=== PATIENT | female | born 1995 | race Two or more races ===

== ENCOUNTER 2017-12-14 23:35 | Emergency (ER) | payer MEDICAID ==
[~2017-12-14] VITALS: Ht 165.1 cm; Wt 61.4 kg
[~2017-12-14 23:35] MED LIST: KETO10TA2 PO
[2017-12-14] MEDS ORDERED: ondansetron/PF 4mg/2ml inj IV ONE (23:45)
[2017-12-14] MEDS ORDERED: HYDROmorphone inj. 0.5 MG/0.5 ML DISP.SYRIN IV ONE (23:45)
[2017-12-14] MEDS ORDERED: normal saline 1000ML IV soln IVB ONE (23:45)
[2017-12-15 00:07] LABS: BASOPHILS % (AUTO) 0.8 % (0-1); EOSINOPHILS # (AUTO) 0.2 X10'3 (0-0.9); EOSINOPHILS % (AUTO) 2.8 % (0-6); HEMATOCRIT 38.9 % (35.0-45.0); HEMOGLOBIN 13.5 g/dl (12.0-16.0); LYMPHOCYTES # (AUTO) 2.8 X10'3 (1.1-4.8); LYMPHOCYTES % (AUTO) 43.1 % (21-51); MEAN CORPUSCULAR HGB CONC 34.8 % (33.0-36.5); MEAN CORPUSCULAR VOLUME 86.3 FL (78-98); MEAN PLATELET VOLUME 7.5 FL (7.4-10.4); MONOCYTES # (AUTO) 0.5 X10'3 (0-0.9); MONOCYTES % (AUTO) 7.6 % (2-12); NEUTROPHILS % (AUTO) 45.7 % (42-75); PLATELET COUNT 269 X10'3 (140-440); RED BLOOD COUNT 4.51 X10'6 (4.20-5.60); RED CELL DISTRIBUTION WIDTH 12.3 % (11.5-14.5); WHITE BLOOD COUNT 6.5 X10'3 (4.5-11.0)
[2017-12-15 00:19] LABS: ALANINE AMINOTRANSFERASE 19 U/L (12-78); ALBUMIN 3.9 G/DL (3.4-5.0); ALKALINE PHOSPHATASE 63 IU/L (46-116); ANION GAP 8 (8-16); ASPARTATE AMINO TRANSFERASE 12 U/L (10-37); BILIRUBIN,TOTAL 0.3 MG/DL (0.1-1.0); BLOOD UREA NITROGEN 12 MG/DL (7-18); BUN/CREATININE RATIO 19.7 (6.6-38.0); CALCIUM 8.5 MG/DL (8.5-10.1); CHLORIDE 105 MMOL/L (99-107); CREATININE 0.61 MG/DL (0.40-0.90); GLUCOSE 115 MG/DL (70-104); POTASSIUM 3.6 MMOL/L (3.5-5.1); SODIUM 142 MMOL/L (135-145); TOTAL CARBON DIOXIDE 28.9 MMOL/L (24-32); TOTAL PROTEIN 7.7 G/DL (6.4-8.2); eGFR > 90 ML/MIN
[2017-12-15 01:42] VITALS: BP 107/59
== END 2017-12-15 01:55 | disposition home or self-care (01) ==
LOC: ER 23:35
DX: K59.00 Constipation, unspecified (principal); R10.31 Right lower quadrant pain; Z90.49 Acquired absence of other specified parts of digestive tract; Z79.899 Other long term (current) drug therapy
CPT/HCPCS: 36415; 74176; 80053; 85025; 96361; 96374; 96375; 99285; J1170; J2405; J7030

== ENCOUNTER 2019-05-14 18:15 | Emergency (ER) | payer MEDICAID ==
[~2019-05-14] VITALS: Ht 165.1 cm; Wt 62.0 kg
[~2019-05-14 18:15] MED LIST changes: +ALBU6.7H9 INH; +NITR100C PO
[2019-05-14 18:37] VITALS: BP 95/68
== END 2019-05-14 21:46 | disposition home or self-care (01) ==
LOC: ER 18:16
DX: J06.9 Acute upper respiratory infection, unspecified (principal); J40 Bronchitis, not specified as acute or chronic; Z90.49 Acquired absence of other specified parts of digestive tract; Z79.899 Other long term (current) drug therapy
CPT/HCPCS: 71045; 99283

== ENCOUNTER 2020-07-05 08:40 | Emergency (ER) | payer MEDICAID ==
[~2020-07-05] VITALS: Ht 165.1 cm; Wt 70.0 kg
[2020-07-05 08:52] VITALS: BP 120/77
== END 2020-07-05 10:03 | disposition home or self-care (01) ==
LOC: ER 08:41
DX: J06.9 Acute upper respiratory infection, unspecified (principal); R05 Cough; R51.9 Headache, unspecified; Z20.828 Contact with and (suspected) exposure to other viral communicable diseases; Z90.49 Acquired absence of other specified parts of digestive tract; Z79.899 Other long term (current) drug therapy
CPT/HCPCS: 36415; 71045; 87502; 87503; 99284

== ENCOUNTER 2020-11-05 19:44 | Emergency (ER) | payer BC, MEDICAID ==
[~2020-11-05] VITALS: Ht 165.1 cm; Wt 68.2 kg
[2020-11-05 19:59] VITALS: BP 132/98
[2020-11-05] MEDS ORDERED: LIDOcaine 1% W/epiNEPHrine 1:200,000 10ml vial IJ ONE (22:00)
[2020-11-05] MEDS ORDERED: CEPH250T PO (23:38)
== END 2020-11-05 23:59 | disposition home or self-care (01) ==
LOC: ER 19:44
DX: L60.0 Ingrowing nail (principal); Z90.49 Acquired absence of other specified parts of digestive tract; Z79.899 Other long term (current) drug therapy
CPT/HCPCS: 11750; 73630; 99284

== ENCOUNTER 2021-09-06 14:23 | Emergency (ER) | payer MEDICAID ==
[~2021-09-06] VITALS: Ht 165.1 cm; Wt 66.8 kg
[2021-09-06 14:54] VITALS: BP 114/81
== END 2021-09-06 18:12 | disposition left against medical advice (07) ==
LOC: ER 14:23
DX: R10.9 Unspecified abdominal pain (principal); Z53.21 Procedure and treatment not carried out due to patient leaving prior to being seen by health care provider

== ENCOUNTER 2021-09-15 21:26 | Emergency (ER) | payer MEDICAID ==
[~2021-09-15] VITALS: Ht 165.1 cm; Wt 65.5 kg
[2021-09-15 21:29] VITALS: BP 119/75
[2021-09-15 22:01] LABS: BASOPHILS # (AUTO) 0.1 X10'3 (0-0.2); BASOPHILS % (AUTO) 1.2 % (0-1); EOSINOPHILS # (AUTO) 0.3 X10'3 (0-0.9); EOSINOPHILS % (AUTO) 6.5 % (0-6); HEMATOCRIT 36.5 % (35.0-45.0); HEMOGLOBIN 12.7 g/dl (12.0-16.0); LYMPHOCYTES # (AUTO) 2.4 X10'3 (1.1-4.8); LYMPHOCYTES % (AUTO) 47.3 % (21-51); MEAN CORPUSCULAR HEMOGLOBIN 27.8 PG (27.0-31.0); MEAN CORPUSCULAR HGB CONC 34.9 g/dL (33.0-36.5); MEAN CORPUSCULAR VOLUME 79.5 FL (78-98); MEAN PLATELET VOLUME 6.5 FL (7.4-10.4); MONOCYTES # (AUTO) 0.4 X10'3 (0-0.9); MONOCYTES % (AUTO) 8.1 % (2-12); NEUTROPHILS # (AUTO) 1.9 X10'3 (1.8-7.7); NEUTROPHILS % (AUTO) 36.9 % (42-75); PLATELET COUNT 305 X10'3 (140-440); RED BLOOD COUNT 4.59 X10'6 (4.20-5.60); RED CELL DISTRIBUTION WIDTH 15.1 % (11.5-14.5); WHITE BLOOD COUNT 5.1 X10'3 (4.5-11.0)
[2021-09-15 22:12] LABS: ALANINE AMINOTRANSFERASE 21 U/L (12-78); ALBUMIN/GLOBULIN RATIO 1.1 (1.1-1.5); ALKALINE PHOSPHATASE 66 IU/L (46-116); ANION GAP 10 (8-16); ASPARTATE AMINO TRANSFERASE 16 U/L (10-37); BILIRUBIN,TOTAL 0.2 MG/DL (0.1-1.0); BLOOD UREA NITROGEN 10 MG/DL (7-18); BUN/CREATININE RATIO 16.9 (6.6-38.0); CALCIUM 8.6 MG/DL (8.5-10.1); CHLORIDE 106 MMOL/L (99-107); CREATININE 0.59 MG/DL (0.40-0.90); GLUCOSE 79 MG/DL (70-104); POTASSIUM 3.8 MMOL/L (3.5-5.1); SODIUM 144 MMOL/L (135-145); TOTAL CARBON DIOXIDE 27.9 MMOL/L (24-32); TOTAL PROTEIN 7.5 G/DL (6.4-8.2); eGFR > 90 ML/MIN
[2021-09-15 22:19] LABS: BETA HCG,QUANTITATIVE < 1.0 mIU/ml
[2021-09-15 22:20] LABS: URINE HCG NEGATIVE (NEG)
[2021-09-15 22:21] LABS: CLARITY,URINE CLEAR (Clear); COLOR,URINE YELLOW (Yellow); GLUCOSE, URINE NEGATIVE (Neg); KETONES,URINE NEGATIVE (Neg); LEUKOCYTE ESTERASE ,URINE NEGATIVE (Neg); NITRITES, URINE NEGATIVE (Neg); OCCULT BLOOD,URINE NEGATIVE (Neg); PROTEIN,URINE NEGATIVE (Neg); UROBILINOGEN,URINE 0.2 E.U/dL (0.2-1.0)
[2021-09-15 22:32] LABS: UA COLLECTION TYPE CLN CATCH MIDSTREAM
== END 2021-09-16 02:47 | disposition home or self-care (01) ==
LOC: ER 21:27
DX: R10.30 Lower abdominal pain, unspecified (principal); R19.7 Diarrhea, unspecified; Z90.49 Acquired absence of other specified parts of digestive tract; Z79.899 Other long term (current) drug therapy
CPT/HCPCS: 36415; 76856; 80053; 81003; 81025; 84702; 85025; 93976; 99284

== ENCOUNTER 2022-04-25 19:31 | Emergency (ER) | payer MEDICAID ==
[~2022-04-25] VITALS: Ht 165.1 cm; Wt 63.2 kg
[2022-04-25 19:42] VITALS: BP 128/78
[2022-04-25] MEDS ORDERED: cephalexin 500mg capsule PO ONE (20:55)
[2022-04-25] MEDS ORDERED: CEPH500C81 PO (21:03)
== END 2022-04-25 21:16 | disposition home or self-care (01) ==
LOC: ER 19:31
DX: N61.0 Mastitis without abscess (principal); N64.4 Mastodynia; Z90.49 Acquired absence of other specified parts of digestive tract; Z79.2 Long term (current) use of antibiotics; Z79.899 Other long term (current) drug therapy
CPT/HCPCS: 99283

== ENCOUNTER 2022-04-28 18:18 | Inpatient (IN) | payer MEDICAID ==
[~2022-04-28] VITALS: Ht 165.1 cm; Wt 62.7 kg
[~2022-04-28 18:18] MED LIST changes: +CEPH500C81 PO
[2022-04-28 19:14] LABS: BASOPHILS % (AUTO) 0.9 % (0-1); EOSINOPHILS # (AUTO) 0.1 X10'3 (0-0.9); EOSINOPHILS % (AUTO) 2.3 % (0-6); HEMATOCRIT 38.3 % (35.0-45.0); HEMOGLOBIN 13.5 g/dl (12.0-16.0); LYMPHOCYTES # (AUTO) 0.6 X10'3 (1.1-4.8); LYMPHOCYTES % (AUTO) 13.2 % (21-51); MEAN CORPUSCULAR HEMOGLOBIN 28.9 PG (27.0-31.0); MEAN CORPUSCULAR HGB CONC 35.3 g/dL (33.0-36.5); MEAN CORPUSCULAR VOLUME 81.9 FL (78-98); MEAN PLATELET VOLUME 7.1 FL (7.4-10.4); MONOCYTES # (AUTO) 0.5 X10'3 (0-0.9); MONOCYTES % (AUTO) 9.3 % (2-12); NEUTROPHILS # (AUTO) 3.6 X10'3 (1.8-7.7); NEUTROPHILS % (AUTO) 74.3 % (42-75); PLATELET COUNT 271 X10'3 (140-440); RED BLOOD COUNT 4.68 X10'6 (4.20-5.60); RED CELL DISTRIBUTION WIDTH 13.1 % (11.5-14.5); WHITE BLOOD COUNT 4.9 X10'3 (4.5-11.0)
[2022-04-28 19:28] LABS: ALANINE AMINOTRANSFERASE 21 U/L (12-78); ALBUMIN/GLOBULIN RATIO 0.9 (1.1-1.5); ALKALINE PHOSPHATASE 73 IU/L (46-116); ANION GAP 10 (8-16); ASPARTATE AMINO TRANSFERASE 17 U/L (10-37); BILIRUBIN,TOTAL 0.4 MG/DL (0.1-1.0); BLOOD UREA NITROGEN 12 MG/DL (7-18); BUN/CREATININE RATIO 18.5 (6.6-38.0); CALCIUM 8.8 MG/DL (8.5-10.1); CHLORIDE 104 MMOL/L (99-107); CREATININE 0.65 MG/DL (0.40-0.90); GLUCOSE 106 MG/DL (70-104); POTASSIUM 3.9 MMOL/L (3.5-5.1); SODIUM 139 MMOL/L (135-145); TOTAL CARBON DIOXIDE 25.3 MMOL/L (24-32); TOTAL PROTEIN 8.6 G/DL (6.4-8.2); eGFR > 90 ML/MIN
[2022-04-28 20:07] LABS: CLARITY,URINE CLEAR (Clear); COLOR,URINE YELLOW (Yellow); GLUCOSE, URINE NEGATIVE (Neg); KETONES,URINE NEGATIVE (Neg); LEUKOCYTE ESTERASE ,URINE NEGATIVE (Neg); NITRITES, URINE NEGATIVE (Neg); OCCULT BLOOD,URINE NEGATIVE (Neg); PROTEIN,URINE NEGATIVE (Neg); UROBILINOGEN,URINE 0.2 E.U/dL (0.2-1.0)
[2022-04-28 20:11] LABS: UA COLLECTION TYPE CLN CATCH MIDSTREAM
[2022-04-28] MEDS ORDERED: temazepam 15mg capsule PO PRN (21:00)
[2022-04-28] MEDS ORDERED: piperacillin/tazo 3.375gm/50ml 50 ML IV ONE (21:25)
[2022-04-28] MEDS ORDERED: bisacodyl 10mg suppository rectal RC PRN (22:55)
[2022-04-28] MEDS ORDERED: acetaminophen 325mg tablet PO PRN ×2 (22:55)
[2022-04-28] MEDS ORDERED: mag hydrox/Alum hydrox/simeth 30ml oral suspension PO PRN (22:55)
[2022-04-28] MEDS ORDERED: acetaminophen 650mg rectal suppository RC PRN (22:55)
[2022-04-28] MEDS ORDERED: normal saline 1000ml 1,000 ML IV SCH (22:55)
[2022-04-28] MEDS ORDERED: morphine 2 MG/ML inj. syringe IV PRN ×2 (22:55)
[2022-04-28] MEDS ORDERED: HYDROcodone/acetaminophen 5mg/325mg tablet PO PRN (22:55)
[2022-04-28] MEDS ORDERED: ondansetron 4mg rapidly disintigrating tab PO PRN (22:55)
[2022-04-28] MEDS ORDERED: magnesium hydroxide 30ml (MOM) UD suspension PO PRN (22:55)
[2022-04-28] MEDS ORDERED: ondansetron/PF 4mg/2ml inj IV PRN (22:55)
[2022-04-28] MEDS ORDERED: HYDROcodone/acetaminophen 10/325mg tab PO PRN (22:55)
[2022-04-28] MEDS ORDERED: diphenhydrAMINE 25mg capsule PO PRN (22:55)
[2022-04-28] MEDS ORDERED: diphenhydrAMINE 50 mg/ml inj IV PRN (22:55)
[2022-04-29 00:50] VITALS: BP 110/73
--- NOTE | 2022-04-29 01:58 | NUR ---
RC'D VERBAL REPORT AND ASSUMED CARE OF PATIENT WHEN SHE ARRIVED VIA W/C FROM ED AT 0050. AMBULATED TO BED, GAIT STEADY. IVF'S INFUSING ORDERED, VITAL SIGNS TAKEN AND C/O GENERALIZED BODY ACHE "ALL OVER". NORCO 10 GIVEN FOR PAIN LEVEL OF 7/10. CALL LIGHT IN REACH AND PATIENT EDUCATED ON IT'S USE. ORIENTED TO ROOM AND HOSPITAL ROUTINE AND HOW TO USE THE BATHROOM WHEN NEEDED WITH HER IV POLE. STATED UNDERSTANDING.
[2022-04-29] MEDS ORDERED: ALBU90AE2 PO (02:48)
[2022-04-29] MEDS ORDERED: CEPH-585 PO (02:49)
--- NOTE | 2022-04-29 05:42 | NUR ---
L LATERAL BREAST, SOFT AND NON TENDER NOW. WHEN PATIENT ARRIVED HAD A FIRM AND PAINFUL TO THE TOUCH AREA ON HER LATERALJL BREAST. STATES IT FEELS SO MUCH BETTER NOW. NO C/O PAIN.
[2022-04-29 06:00] VITALS: BP 99/68
--- NOTE | 2022-04-29 06:41 | NUR ---
REPORT ON THIS PATIENT GIVEN TO TANIKA CRESPO
[2022-04-29 06:42] LABS: BASOPHILS % (AUTO) 0.7 % (0-1); EOSINOPHILS # (AUTO) 0.2 X10'3 (0-0.9); EOSINOPHILS % (AUTO) 3.5 % (0-6); HEMOGLOBIN 12.4 g/dl (12.0-16.0); LYMPHOCYTES % (AUTO) 23.3 % (21-51); MEAN CORPUSCULAR HEMOGLOBIN 28.9 PG (27.0-31.0); MEAN CORPUSCULAR HGB CONC 35.3 g/dL (33.0-36.5); MEAN CORPUSCULAR VOLUME 81.9 FL (78-98); MONOCYTES # (AUTO) 0.4 X10'3 (0-0.9); MONOCYTES % (AUTO) 9.1 % (2-12); NEUTROPHILS # (AUTO) 2.8 X10'3 (1.8-7.7); NEUTROPHILS % (AUTO) 63.4 % (42-75); PLATELET COUNT 225 X10'3 (140-440); RED BLOOD COUNT 4.27 X10'6 (4.20-5.60); RED CELL DISTRIBUTION WIDTH 13.3 % (11.5-14.5); WHITE BLOOD COUNT 4.4 X10'3 (4.5-11.0)
[2022-04-29] MEDS ORDERED: albuterol 2.5 MG/3 ML nebule NEB PRN (07:00)
[2022-04-29] MEDS ORDERED: ampicillin/sulbac 3gm/NS 100ml 100 ML IV SCH (07:00)
[2022-04-29 07:19] LABS: ALANINE AMINOTRANSFERASE 101 U/L (12-78); ALBUMIN 3.3 G/DL (3.4-5.0); ALBUMIN/GLOBULIN RATIO 0.8 (1.1-1.5); ALKALINE PHOSPHATASE 76 IU/L (46-116); ANION GAP 6 (8-16); ASPARTATE AMINO TRANSFERASE 157 U/L (10-37); BILIRUBIN,TOTAL 0.7 MG/DL (0.1-1.0); BLOOD UREA NITROGEN 12 MG/DL (7-18); BUN/CREATININE RATIO 20.7 (6.6-38.0); CALCIUM 8.3 MG/DL (8.5-10.1); CHLORIDE 105 MMOL/L (99-107); CREATININE 0.58 MG/DL (0.40-0.90); GLUCOSE 88 MG/DL (70-104); POTASSIUM 3.7 MMOL/L (3.5-5.1); SODIUM 139 MMOL/L (135-145); TOTAL CARBON DIOXIDE 28.3 MMOL/L (24-32); TOTAL PROTEIN 7.2 G/DL (6.4-8.2); eGFR > 90 ML/MIN
[2022-04-29] MEDS ORDERED: pantoprazole 40mg Tablet.DR PO SCH (07:30)
--- NOTE | 2022-04-29 07:55 | NUR ---
zosyn not reassessed noc shift
[2022-04-29] MEDS ORDERED: heparin, porcine 5000 units/ml vial SQ SCH (08:00)
[2022-04-29] MEDS ORDERED: docusate sod 100mg capsule PO SCH (08:00)
[2022-04-29 10:00] VITALS: BP 113/72
[2022-04-29] MEDS ORDERED: AMOX-117 PO (11:25)
--- NOTE | 2022-04-29 12:32 | NUR ---
pt discharged in stable condition to home with . iv removed tip intact, no complications. belongings sent with pt. pt educated on s/s of infection and removal of piercing.
== END 2022-04-29 12:32 | disposition home or self-care (01) | DRG 385 ==
LOC: ER 18:19 → ED HOLD 22:54 → EDBEDREQ 04-29 00:25 → ORTHO 4S 04-29 00:50
PROVIDERS: ADMIT Family Medicine; ATTEND Family Medicine
DX: N61.0 Mastitis without abscess (principal); J45.909 Unspecified asthma, uncomplicated; L03.90 Cellulitis, unspecified; Z20.822 Contact with and (suspected) exposure to COVID-19; Z91.013 Allergy to seafood; Z90.49 Acquired absence of other specified parts of digestive tract; Z79.899 Other long term (current) drug therapy
CPT/HCPCS: 36415; 71045; 76642; 80053; 81003; 83605; 84145; 85025; 87040; 87070; 87075; 87077; 87081; 87186; 87811; 96365; 99285; G0378; J0295; J2543; J7030

== ENCOUNTER 2022-05-10 22:13 | Emergency (ER) | payer MEDICAID ==
[~2022-05-10] VITALS: Ht 165.1 cm; Wt 63.4 kg
[~2022-05-10 22:13] MED LIST changes: -ALBU6.7H9 INH; +ALBU90AE2 PO; +AMOX-117 PO; -CEPH500C81 PO; -KETO10TA2 PO; -NITR100C PO
[2022-05-10 22:54] LABS: CLARITY,URINE CLEAR (Clear); COLOR,URINE YELLOW (Yellow); GLUCOSE, URINE NEGATIVE (Neg); KETONES,URINE NEGATIVE (Neg); LEUKOCYTE ESTERASE ,URINE NEGATIVE (Neg); NITRITES, URINE NEGATIVE (Neg); OCCULT BLOOD,URINE TRACE-INTACT (Neg); PROTEIN,URINE NEGATIVE (Neg); UROBILINOGEN,URINE 0.2 E.U/dL (0.2-1.0)
[2022-05-10 22:56] LABS: URINE HCG NEGATIVE (NEG)
[2022-05-10 22:57] LABS: BASOPHILS # (AUTO) 0.1 X10'3 (0-0.2); BASOPHILS % (AUTO) 0.8 % (0-1); EOSINOPHILS # (AUTO) 0.4 X10'3 (0-0.9); EOSINOPHILS % (AUTO) 4.2 % (0-6); HEMOGLOBIN 10.2 g/dl (12.0-16.0); LYMPHOCYTES # (AUTO) 2.1 X10'3 (1.1-4.8); LYMPHOCYTES % (AUTO) 22.3 % (21-51); MEAN CORPUSCULAR HEMOGLOBIN 29.1 PG (27.0-31.0); MEAN CORPUSCULAR HGB CONC 35.1 g/dL (33.0-36.5); MEAN PLATELET VOLUME 6.4 FL (7.4-10.4); MONOCYTES # (AUTO) 0.6 X10'3 (0-0.9); MONOCYTES % (AUTO) 6.8 % (2-12); NEUTROPHILS # (AUTO) 6.1 X10'3 (1.8-7.7); NEUTROPHILS % (AUTO) 65.9 % (42-75); PLATELET COUNT 424 X10'3 (140-440); RED BLOOD COUNT 3.49 X10'6 (4.20-5.60); RED CELL DISTRIBUTION WIDTH 12.7 % (11.5-14.5); WHITE BLOOD COUNT 9.2 X10'3 (4.5-11.0)
[2022-05-10 23:05] LABS: ALANINE AMINOTRANSFERASE 18 U/L (12-78); ALBUMIN 3.6 G/DL (3.4-5.0); ALBUMIN/GLOBULIN RATIO 0.9 (1.1-1.5); ALKALINE PHOSPHATASE 82 IU/L (46-116); ANION GAP 9 (8-16); ASPARTATE AMINO TRANSFERASE 8 U/L (10-37); BILIRUBIN,TOTAL 0.3 MG/DL (0.1-1.0); BLOOD UREA NITROGEN 15 MG/DL (7-18); BUN/CREATININE RATIO 21.4 (6.6-38.0); CALCIUM 8.6 MG/DL (8.5-10.1); CHLORIDE 100 MMOL/L (99-107); GLUCOSE 96 MG/DL (70-104); LIPASE 83 U/L (73-393); POTASSIUM 3.6 MMOL/L (3.5-5.1); SODIUM 139 MMOL/L (135-145); TOTAL CARBON DIOXIDE 30.2 MMOL/L (24-32); TOTAL PROTEIN 7.5 G/DL (6.4-8.2); eGFR > 90 ML/MIN
[2022-05-10 23:05] LABS: UA COLLECTION TYPE CLN CATCH MIDSTREAM
[2022-05-10 23:08] LABS: BACTERIA,URINE FEW /HPF (Neg); RBC,URINE 0-2 /HPF (0-2)
[2022-05-10 23:09] LABS: MUCUS STRANDS FEW /LPF (Neg); SQUAMOUS EPITHELIAL CELL,UR FEW /LPF (FEW)
[2022-05-11] MEDS ORDERED: acetaminophen 325mg tablet PO ONE (02:05)
[2022-05-11 02:19] VITALS: BP 107/76
[2022-05-11] MEDS ORDERED: DOCU-171 PO (04:50)
== END 2022-05-11 05:00 | disposition home or self-care (01) ==
LOC: ER 22:14
DX: R10.31 Right lower quadrant pain (principal); R14.0 Abdominal distension (gaseous); J45.909 Unspecified asthma, uncomplicated; Z91.013 Allergy to seafood; Z79.899 Other long term (current) drug therapy
CPT/HCPCS: 36415; 74176; 80053; 81001; 81025; 83690; 85025; 87088; 99284

== ENCOUNTER 2024-12-30 17:41 | Emergency (ER) | payer MEDICAID ==
[~2024-12-30] VITALS: Ht 165.1 cm; Wt 67.5 kg
[~2024-12-30 17:41] MED LIST changes: -ALBU90AE2 PO; +ALBU90AE3 PO; -AMOX-117 PO; +DOCU-171 PO
[2024-12-30 17:46] VITALS: TEMP 97.5
--- NOTE | 2024-12-30 18:00 | Physician Documentation ---
History of Present Illness ~ Chief Complaint: Headache Stated Complaint: MIGRAINE Time Seen by MD: 17:51 Primary Medical Doctor: dr lopez: [facility] HPI A 29 year old female with a history of migraines presents to the ED with a complaint of migraine for the last two days which started with an aura. She now complains of nausea vomiting and light sensitivity. no Taking anything for her symptoms yet Day of Onset: Dec 30, 2024 Medication Reconciliation Allergies: Coded Allergies: Fish Containing Products (Unverified Allergy, Unknown, 12/30/24) Scheduled Docusate Sodium (Dulcolax Stool Softener), 1 CAP PO Q12H Scheduled PRN Albuterol Sulfate (Proair Digihaler), 2 PUFFS PO Q4HWA PRN for SOB or wheezing, (Reported) Past Medical History Past Medical History: Asthma, Bronchitis Past Surgical History: cholecystectomy Patient History: Patient reports no known family medical history. Alcohol Use: None Drug Use: none Lives with: Family Lives In: Home Occupation: employed Review of Systems All Other Systems at this time: Reviewed and Negative ROS As stated above in the HPI, otherwise all systems are reviewed and negative. Physical Exam Vital Signs: Temperature: 97.5, Source: Temporal, Heart Rate: 84, Respiratory Rate: 18, BP: 167/99, Pulse Oximetry: 97, Weight: 67.500 Physical Exam General: Alert, no apparent distress. HEENT: PERRL, EOMI, no injection, moist mucous membranes. Neck: Full range of motion. Respiratory: Lungs clear, no respiratory distress. Chest: No accessory muscle use. Cardiovascular: Regular rate and rhythm, no murmurs. Gastrointestinal: Soft, nontender, nondistended. Bowels sounds present. Extremities: Normal range of motion, no deformity. Neurologic: Oriented x4. Psychiatric: Normal mood and affect. Skin: Normal color, warm and dry. No edema, no ecchymosis. Progress Results/Orders Results/Orders Completed Orders - SHAKIR HARDWICK NP Ketorolac Trometh 30mg/Ml Vial (Toradol (12/30/24 18:05) Prochlorperazine Inj (Compazine Inj) (12/30/24 18:50) Metoclopramide Inj (Reglan Inj) (12/30/24 18:50) Diphenhydramine Inj (Benadryl Inj.) (12/30/24 18:50) Normal Saline 1000ml (Sodium Chloride 10 (12/30/24 18:50) Haloperidol Lact. (Haldol) (12/30/24 18:50) Medications Received in ER Medications (Trade) Dose Ordered Sig/Mendez Route PRN Reason Start Time Stop Time Status Last Admin Dose Admin (Toradol inj. 30mg/ml) 30 mg ONCE ONCE IM 12/30/24 18:05 12/30/24 18:06 DC 12/30/24 18:13 30 MG (sodium chloride 1000ml IV soln) 1,000 ml ONCE ONCE IVB 12/30/24 18:50 12/30/24 18:51 DC 12/30/24 19:43 1,000 ML Vital Signs 12/30/24 12/30/24 12/30/24 12/30/24 17:46 18:13 18:51 19:00 Temp 97.5 Pulse 84 74 Resp 18 16 9 18 B/P (MAP) 167/99 114/70 (85) Pulse Ox 97 100 O2 Flow Rate 0 12/30/24 20:41 Pulse 98 Resp 16 B/P (MAP) 114/70 Pulse Ox 98 Medical Decision Making Differential Dx:Considerations: Include: MARINA-Cluster, MARINA-Migraine, MARINA- Hypertensive, MARINA-Muscular contraction, MARINA-Post lumbar puncture, Carbon monoxide toxicity, Close head injuyr, CVA, Fever induced, Hemorrhage-Epidural, Hemorrhage-Intracerebral, Hemorrhage-Subarachnoid, Hemorrhage-Subdural, Mass lesion, Meningitis, Post-traumtic, Pseudotumor cerebri, Sinusitis, Temporal arteritis, Trigeminal neuralgia, Other Departure Disposition: HOME / SELF CARE / HOMELESS Impression: Primary Impression: Migraine Condition: Stable Discharge Instructions: Migraine Headache Referrals: NO PRIMARY CARE PROVIDER (PCP) Signature Scribe Signature: e Attestation: The note accurately reflects work and decisions made by me.Shakir Velazquez NP 12/30/24 20:55 SHAKIR HARDWICK NP Dec 30, 2024 18:00
[2024-12-30] MEDS ORDERED: ketorolac trometh 15mg/ml vial 15 MG/ML ML IM ONE (18:05)
[2024-12-30] MEDS: ketorolac trometh 30MG/ML vial 30 MG/ML VIAL IM ONE (18:13)
[2024-12-30] MEDS: diphenhydrAMINE 50 mg/ml inj IV ONE (18:50)
[2024-12-30] MEDS: metoclopramide 5 mg/ml inj IV ONE (18:50)
[2024-12-30] MEDS: haloperidol lactate 5mg/ml inj IM ONE (18:50)
[2024-12-30] MEDS: proCHLORperazine 10 MG/2 ml inj IV ONE (18:50)
[2024-12-30] MEDS: normal saline 1000ML IV soln IVB ONE (19:43)
[2024-12-30 20:41] VITALS: BP 114/70; PULSE 98; RESP 16; O2SAT 98
== END 2024-12-30 20:51 | disposition home or self-care (01) ==
LOC: ER 17:42
DX: G43.909 Migraine, unspecified, not intractable, without status migrainosus (principal); J45.909 Unspecified asthma, uncomplicated; Z90.49 Acquired absence of other specified parts of digestive tract
CPT/HCPCS: 96360; 96372; 99283; J1885; J7030

== ENCOUNTER 2025-03-15 12:24 | Emergency (ER) | payer MEDICAID ==
[~2025-03-15] VITALS: Ht 165.1 cm; Wt 63.2 kg
[2025-03-15 12:41] VITALS: TEMP 97.6
[2025-03-15 13:11] LABS: MEAN PLATELET VOLUME 7.4 FL (7.4-10.4); RED CELL DISTRIBUTION WIDTH 15.5 % (11.5-14.5)
[2025-03-15 13:14] LABS: LEUKOCYTE ESTERASE ,URINE TRACE (Neg); NITRITES, URINE NEGATIVE (Neg); OCCULT BLOOD,URINE NEGATIVE (Neg); UA COLLECTION TYPE CLN CATCH MIDSTREAM
--- NOTE | 2025-03-15 13:19 | Physician Documentation ---
History of Present Illness Chief Complaint: Abdominal Pain Stated Complaint: ABDOMINAL PAIN Primary Medical Doctor: dr lopez: [facility] HPI This is a 29-year-old female who presents to the emergency department with right lower quadrant abdominal pain, nausea, vomiting. Medication Reconciliation Allergies: Coded Allergies: Fish Containing Products (Unverified Allergy, Unknown, 03/15/25) Scheduled Docusate Sodium (Dulcolax Stool Softener), 1 CAP PO Q12H Scheduled PRN Albuterol Sulfate (Proair Digihaler), 2 PUFFS PO Q4HWA PRN for SOB or wheezing, (Reported) Past Medical History Past Medical History: Asthma, Bronchitis Past Surgical History: cholecystectomy Patient History: Patient reports no known family medical history. Alcohol Use: None Drug Use: none Lives with: Family Lives In: Home Occupation: employed Review of Systems ROS As stated above in the HPI, otherwise all systems are reviewed and negative. Physical Exam Vital Signs: Temperature: 97.6, Source: Temporal, Heart Rate: 87, Respiratory R ate: 16, BP: 137/81, Pulse Oximetry: 99, Weight: 63.180 Oxygen Flow Rate: 0 Physical Exam General: Alert, appears uncomfortable. Neck: Full range of motion. Respiratory: Lungs clear, no respiratory distress. Chest: No accessory muscle use. Cardiovascular: Regular rate and rhythm, no murmurs. Gastrointestinal: Soft, TTP with guarding RLQ, nondistended. Bowels sounds present. Extremities: Normal range of motion, no deformity. Neurologic: Oriented x4. Psychiatric: Normal mood and affect. Skin: Normal color, warm and dry. No edema, no ecchymosis. Progress Progress Note 1532: On reevaluation, patient remains TTP of the right lower quadrant/pelvis. Labs reviewed. No leukocytosis. Normal LFTs and renal function. UA without signs of infection. Patient is s/p cholecystectomy. Ordered pelvic u.s. 1604: U.S. tech reports large 4 cm hemorrhagic cyst. Good flow to both ovaries. No pain reported by patient during scanning. 1621: At bedside reevaluating patient after toradol. Reports no pain at rest but that it markedly increases as high as 9/10 with standing and walking. Shared decision making with patient and her and they elect for CT scan abd/pelvis and this was ordered. Results/Orders Results/Orders Vital Signs 03/15/25 12:41 Temp 97.6 Pulse 87 Resp 16 B/P (MAP) 137/81 Pulse Ox 99 O2 Flow Rate 0 Laboratory Tests Test 03/15/25 12:43 03/15/25 12:55 Urine Specimen Description Cln catch midstream Urine Color Yellow Urine Clarity Slightly cloudy Urine pH 6.0 Urine Specific [place] 1.015 Urine Protein Negative Urine Glucose (UA) Negative Urine Ketones Negative Urine Occult Blood Negative Urine Nitrite Negative Urine Bilirubin Negative Urine Urobilinogen 0.2 Urine Leukocyte Esterase Trace H Volume Urine Centrifuged 10 ml Urine Comment White Blood Count 6.3 Red Blood Count 4.74 Hemoglobin 13.2 Hematocrit 38.7 Mean Corpuscular Volume 81.5 Mean Corpuscular Hemoglobin 27.8 Mean Corpuscular Hemoglobin Concent 34.1 Red Cell Distribution Width 15.5 H Platelet Count 297 Mean Platelet Volume 7.4 Neutrophils (%) (Auto) 57.2 Lymphocytes (%) (Auto) 31.7 Monocytes (%) (Auto) 7.4 Eosinophils (%) (Auto) 3.0 Basophils (%) (Auto) 0.7 Neutrophils # (Auto) 3.6 Lymphocytes # (Auto) 2.0 Monocytes # (Auto) 0.5 Eosinophils # (Auto) 0.2 Basophils # (Auto) 0.0 CBC Comment Chemistry Comments EKG/XRAY/CT/US/VASC/MRI CT : Impression CAT SCAN Patient: ROBERTO BENITEZ Medical Record: [id number] [facility] 1995, Age: 29 Sex: Female Location: ER Patient Status: REG ER Service Date/Time: 03/15/251749 Ordering Physician: NICOLASA ELIZABETH UPSETTER SETTER UP Exam: CT ABDOMEN PELVIS Indication: RLQ pain Technique: CT axial images of the abdomen and pelvis are obtained with intravenous contrast. Coronal and sagittal reformats were obtained. Radiation Dose Information: CTDI volume is 14 mGy. Dose-length product is 705 mGy*cm Comparison: m ultrasound pelvis from today FINDINGS: Lung bases demonstrate atelectasis. Adrenal glands, spleen and pancreas unremarkable. Cholecystectomy. No enhancing hepatic lesion. Kidneys demonstrate no hydronephrosis. Stomach is partially distended. Small bowel loops are normal in caliber. Moderate volume stool within the colon. Normal appendix. Abdominal aorta normal in caliber.m Redemonstration of left ovarian 4.5 cm cystic lesion. Enlargement of the left gonadal vein up to 10 mm. Right ovarian cystic lesion measuring 2.3 cm. No significant free pelvic fluid. No inguinal lymphadenopathy. IMPRESSION: Redemonstration of the left ovarian 4.5 cm cystic lesion is seen on ultrasound pelvis from today, likely hemorrhagic cysts. Recommend follow-up to resolution to exclude complex lesion. Enlargement of the left gonadal vein which can be seen with pelvic congestion syndrome. 2.3 cm right ovarian cyst. Normal appendix. Other findings as described. Electronically Signed by:JORGE REIS MD Date & Time: 03/15/251818 Dictated by: JOREG REIS MD Dictation date and time: 03/15/251818 Primary Care Provider: NO PRIMARY CARE PROVIDER cc: NICOLASA ELIZABETH NP ~ Ultrasound : Impression [place] [phone] ULTRASOUND Patient: ROBERTO BENITEZ Medical Record: [id number] [facility] 1995, Age: 29 Sex: Female Location: ER Patient Status: REG ER Service Date/Time: 03/15/25/ Ordering Physician: NICOLASA ELIZABETH NP Exam: ULTRASOUND PELVIS W/ORWO DPLX Technique: Real-time ultrasound images through the pelvis using a transabdominal transducer. Indication: pelvic pain Comparison: None Findings: The uterus measures 8. cm. The endometrial stripe measures 5 mm. There are no focal masses. There is no abnormal flow in the endometrium. Right ovary measures 3.5 x 3.2 x 3 cm. Normal flow on color doppler images. There is a simple cyst that measures 1.9 cm. Left ovary measures 4.7 x 5.8 x 4.7 cm. Normal flow on color doppler images. Complex cystic lesion with internal lacy matrix measuring 4.4 cm There is no significant free fluid in the pelvis. Impression: Complex left ovarian cyst measuring 4.4 cm with lacy matrix, likely hemorrhagic cyst. Recommend follow-up ultrasound in 6 weeks to ensure resolution. Right ovarian cyst with simple features measuring 1.9 cm. Electronically Signed by:JORGE REIS MD Date & Time: 03/15/251644 Dictated by: JORGE REIS MD Dictation date and time: 03/15/251644 Primary Care Provider: NO PRIMARY CARE PROVIDER cc: NICOLASA ELIZABETH UPSETTER SETTER UP ~ Medical Decision Making Additional Comments 29-year-old female presented with right lower quadrant pain onset this morning. One episode of vomiting. No black or bloody stools reported. Denies chance of . Was found to have large left ovarian cyst with good flow to both ovaries. No leukocytosis. Normal urinalysis. Discussed CT scan with the patient and risk of radiation, declined at this time. She is to return if worse such as with fever over 101 or severe pain. 1825: Patient continued to endorse severe pain despite being medicated with IV acetaminophen and toradol. Rated pain 9/10. Risks and benefits of CT scan again discussed and patient desired to proceed. CT scan returned showing normal appendix and again re-demonstrated ovarian cyst. Needs strategic partner development manager f/u. Departure Time of Disposition: 16:04 Disposition: 01 HOME / SELF CARE / HOMELESS Impression: Primary Impression: Ovarian cyst Additional Impression: Abdominal pain Condition: Stable Discharge Instructions: Ovarian Cyst, Abdominal Pain, Women Additional Instructions: U.S. showed a large ovarian cyst, measuring just over 4 cm on the left side. 1.9 cm right sided ovarian cyst. CT scan shows normal appendix. Take the prescribed medications for pain and inflammation. Please see your primary care and request a referral to Gynecology. You need a followup pelvic u.s. in 4-6 weeks to ensure the large left ovarian cyst has resolved. Return if worse symptoms with fever over 101 and worsening pain. Referrals: NO PRIMARY CARE PROVIDER (PCP) Prescriptions Ondansetron 8mg ODT (Ondansetron Odt) 8 Mg Tab.rapdis 1 TAB PO TID PRN for nausea/vomiting, #10 TAB Prov: NICOLASA ELIZABETH NP 03/15/25 Naproxen (Naproxen) 500 Mg Tablet 1 TAB PO Q12H, #20 TAB Prov: NICOLASA ELIZABETH NP 03/15/25 Education Educated: Patient Educated regarding: diagnosis, treatment, prognosis, need for follow up Signature Scribe Signature: x Attestation: The note accurately reflects work and decisions made by me.Nicolasa Velazquez NP 03/15/25 15:35 NICOLASA ELIZABETH NP Mar 15, 2025 13:19
[2025-03-15 13:21] LABS: URINE HCG NEGATIVE (NEG)
[2025-03-15 13:23] LABS: MUCUS STRANDS NONE SEEN /LPF (Neg); SQUAMOUS EPITHELIAL CELL,UR MANY /LPF (FEW)
[2025-03-15 13:33] LABS: CREATININE 0.72 MG/DL (0.40-0.90); TOTAL CARBON DIOXIDE 25.3 MMOL/L (24-32); eCRCL 105 ML/MIN; eGFR > 90 ML/MIN
[2025-03-15] MEDS: ondansetron/PF 4mg/2ml inj IV ONE (13:44)
[2025-03-15] MEDS: normal saline 1000ml 1,000 ML IV ONE (13:44)
[2025-03-15] MEDS: acetaminophen 1,000mg/100ml IV 100 ML IV STA (13:45)
[2025-03-15 15:16] LABS: LEUKOCYTE ESTERASE ,URINE NEGATIVE (Neg); NITRITES, URINE NEGATIVE (Neg); OCCULT BLOOD,URINE NEGATIVE (Neg)
[2025-03-15 15:17] LABS: UA COLLECTION TYPE CLN CATCH MIDSTREAM
[2025-03-15] MEDS: ketorolac trometh 15mg/ml vial 15 MG/ML ML IV ONE (16:00)
--- NOTE | 2025-03-15 16:47 | RADIOLOGY REPORT ---
Technique: Real-time ultrasound images through the pelvis using a transabdominal transducer. Indication: pelvic pain Comparison: None Findings: The uterus measures 8. cm. The endometrial stripe measures 5 mm. There are no focal masses. There i s no abnormal flow in the endometrium. Right ovary measures 3.5 x 3.2 x 3 cm. Normal flow on color doppler images. There is a simple cyst th at measures 1.9 cm. Left ovary measures 4.7 x 5.8 x 4.7 cm. Normal flow on color doppler images. Complex cystic lesion w ith internal lacy matrix measuring 4.4 cm There is no significant free fluid in the pelvis. Impression: Complex left ovarian cyst measuring 4.4 cm with lacy matrix, likely hemorrhagic cyst. Recommend foll ow-up ultrasound in 6 weeks to ensure resolution. Right ovarian cyst with simple features measuring 1.9 cm.
[2025-03-15] MEDS ORDERED: iohexol 300mg/ml 100ml inj. ONE (17:20)
[2025-03-15 18:08] VITALS: BP 145/87; PULSE 72; RESP 18; O2SAT 98
--- NOTE | 2025-03-15 18:20 | RADIOLOGY REPORT ---
Indication: RLQ pain Technique: CT axial images of the abdomen and pelvis are obtained with intravenous contrast. Coronal and sagittal reformats were obtained. Radiation Dose Information: CTDI volume is 14 mGy. Dose-length product is 705 mGy*cm Comparison: m ultrasound pelvis from today FINDINGS: Lung bases demonstrate atelectasis. Adrenal glands, spleen and pancreas unremarkable. Cholecystectomy. No enhancing hepatic lesion. Kidneys demonstrate no hydronephrosis. Stomach is partially distended. Small bowel loops are normal in caliber. Moderate volume stool within the colon. Normal appendix. Abdominal aorta normal in caliber.m Redemonstration of left ovarian 4.5 cm cystic lesion. Enlargement of the left gonadal vein up to 10 m m. Right ovarian cystic lesion measuring 2.3 cm. No significant free pelvic fluid. No inguinal lympha denopathy. IMPRESSION: Redemonstration of the left ovarian 4.5 cm cystic lesion is seen on ultrasound pelvis from today, lik citlalli hemorrhagic cysts. Recommend follow-up to resolution to exclude complex lesion. Enlargement of the left gonadal vein which can be seen with pelvic congestion syndrome. 2.3 cm right ovarian cyst. Normal appendix. Other findings as described.
[2025-03-15] MEDS ORDERED: ONDA-245 PO (18:27)
[2025-03-15] MEDS ORDERED: NAPR-56 PO (18:27)
== END 2025-03-15 18:36 | disposition home or self-care (01) ==
LOC: ER 12:25
DX: N83.201 Unspecified ovarian cyst, right side (principal); J45.909 Unspecified asthma, uncomplicated; Z90.49 Acquired absence of other specified parts of digestive tract; Z91.013 Allergy to seafood; Z79.899 Other long term (current) drug therapy
CPT/HCPCS: 36415; 74177; 76856; 80053; 81001; 81003; 81025; 83690; 85025; 93976; 96365; 96366; 96375; 99285; J0131; J1885; J2405; J7030; Q9967

== ENCOUNTER 2025-06-14 10:38 | Emergency (ER) | payer OTHER ==
[~2025-06-14] VITALS: Ht 165.1 cm; Wt 67.9 kg
[~2025-06-14 10:38] MED LIST changes: +ONDA-245 PO
[2025-06-14 10:47] VITALS: BP 123/79; PULSE 81; RESP 18; TEMP 97.8; O2SAT 98
[2025-06-14] MEDS ORDERED: VALA10002 PO (11:27)
--- NOTE | 2025-06-14 11:28 | Physician Documentation ---
History of Present Illness ~ Chief Complaint: STD Stated Complaint: BREAKOUT Time Seen by MD: 11:13 Primary Medical Doctor: dr lopez: [facility] HPI 29-year-old female presents requesting medication real refill of Valtrex as she has developed a lesion on her genital area that has gotten larger and more painful. Has a history of herpes Day of Onset: Jun 14, 2025 Medication Reconciliation Allergies: Coded Allergies: Fish Containing Products (Unverified Allergy, Unknown, 06/14/25) Scheduled Docusate Sodium (Dulcolax Stool Softener), 1 CAP PO Q12H Valacyclovir HCl (Valtrex), 1 TAB PO Q8H Scheduled PRN Albuterol Sulfate (Proair Digihaler), 2 PUFFS PO Q4HWA PRN for SOB or wheezing, (Reported) Ondansetron 8mg ODT (Ondansetron Odt), 1 TAB PO TID PRN for nausea/vomiting Past Medical History Past Medical History: Asthma, Bronchitis Past Surgical History: cholecystectomy Patient History: Patient reports no known family medical history. Alcohol Use: None Drug Use: none Lives with: Family Lives In: Home Occupation: employed Review of Systems All Other Systems at this time: Reviewed and Negative ROS As stated above in the HPI, otherwise all systems are reviewed and negative. Physical Exam Vital Signs: Temperature: 97.8, Source: Temporal, Heart Rate: 81, Respiratory Rate: 18, BP: 123/79, Pulse Oximetry: 98, Weight: 67.900 Physical Exam General: Alert, no apparent distress. Respiratory: Lungs clear, no respiratory distress. Cardiovascular: Regular rate and rhythm, no murmurs. Gastrointestinal: Soft, nontender, nondistended. Bowels sounds present. Genitourinary: Deferred Neurologic: Oriented x4. Psychiatric: Normal mood and affect. Skin: Normal color, warm and dry. No edema, no ecchymosis. Progress Results/Orders Results/Orders Vital Signs 06/14/25 10:47 Temp 97.8 Pulse 81 Resp 18 B/P (MAP) 123/79 Pulse Ox 98 Medical Decision Making Additional info obtained from: other Findings We will treat this patient empirically for genital herpes via of Valtrex Urinary Diff Dx:Considerations: Unlikely: AAA, , Aortic dissection, Appendicitis, Bowel obstruction, Cholelithiasis, Choleangitis, DJD, Ectopic , Hepatitis, HNP, Impaction, Intrauterine , Musculoskeletal pain, Ovarian torsion, Pancreatitis, PID, Post-Op complication, Pyelonephritis, Renal failure, Strain, Urinary Obstruction, Urolithiasis, Urinary retention, UTI, Vaginitis, Other Genital Diff Dx:Considerations: Include: -Complete, - Incomplete, -Inevitable, Ablortion-Missed, -Threatened, Abruptio placentae, Bartholin abscess, Bartholin cyst, Blood loss anemia, Constipation, Cervicitis, Dsymenorrhea, Ectopic , Foreign body, Hormonal, Hidradenitis suppurativa, Intrauterine , Menorrhagia, Menometrorrhagia, Menstrual bleeding, Myomatous uterus, Perianal abscess, Physiologic discharge, Pinworms, PID, Placenta previa, , Precipitous Hct, Trauma, UTI, Vaginitis(osis)-Atrophic, Vaginitis, Vaginitis(osis)-Bacterial, Vaginitis(osis)- Candidal, Vaginitis(osis)-Contact, Vaginitis(osis)-Herpes, Vaginitis(osis)- Trich., Other Departure Disposition: HOME / SELF CARE / HOMELESS Impression: Primary Impression: Sexually transmitted disease Discharge Instructions: Genital Herpes Referrals: NO PRIMARY CARE PROVIDER (PCP) Prescriptions Valacyclovir HCl (Valtrex) 1,000 Mg Tablet 1 TAB PO Q8H for 7 Days, #21 TAB 0 Refills Prov: SHAKIR HOWELL NP 06/14/25 Education Educated: Patient Educated regarding: diagnosis Signature Scribe Signature: t Attestation: Scribed for Shakir Howell Np by Shakir Ventura 06/14/25 16:11 SHAKIR HOWELL NP Jun 14, 2025 11:27
== END 2025-06-14 12:33 | disposition home or self-care (01) ==
LOC: ER 10:39
DX: A64 Unspecified sexually transmitted disease (principal); J45.909 Unspecified asthma, uncomplicated; Z90.49 Acquired absence of other specified parts of digestive tract; Z91.013 Allergy to seafood
CPT/HCPCS: 99282